=== PATIENT | female | born 1970 | race Caucasian/White ===

== ENCOUNTER 2016-08-07 07:55 | Day surgery (SDC) | payer BC ==
--- NOTE | ~2016-08-07 | OP ---
Record Of Operation [facility] [address] [place]. [address] NAME: AMY CATES : 66 STATUS : REG [facility]#: [id number] AGE: 46 ADM/REG DATE : 08/07/16 MR#: [id number] REPORT SERV DATE: 08/07/16 DICTATED BY: GLYNN STUART III DATE: 08/07/16 REPORT STATUS : Draft TRANSCRIBED BY: MODMirian DATE: 08/07/16 DATE OF PROCEDURE: 08/07/2016 PREOPERATIVE DIAGNOSIS: Stage IV breast cancer, with need for replacement of nonfunctioning right subclavian Port-A-Cath and removal of nonfunctioning Port-A-Cath. POSTOPERATIVE DIAGNOSIS: Stage IV breast cancer, with need for replacement of nonfunctioning right subclavian Port-A-Cath and removal of nonfunctioning Port-A-Cath, possible superior vena caval thrombosis. PROCEDURE: Removal of right subclavian vein Port-A-Cath, attempted placement of a new Port-A Cath with fluoroscopy. SURGEON: Glynn Stuart M.D. ANESTHESIA: General with intubation. COMPLICATIONS: None. ESTIMATED BLOOD LOSS: Less than 5 mL. SPECIMENS: Port-A-Cath for identification. DRAINS: None. LAP AND SPONGE COUNT: Correct x3. BRIEF HISTORY: This 46-year-old female has a history of breast cancer and is currently undergoing chemotherapy. Her current right subclavian vein Port-A-Cath became dysfunctional. Imaging showed that the tubing had completely retracted onto the chest wall and out of the right subclavian vein. Therefore, felt that removal of this Port-A-Cath with placement of a new Port-A-Cath was indicated. This procedure, the risks, benefits, and alternatives, including not limited to the risk for bleeding, infection, pneumothorax, air embolus, pericardial tamponade, failure of the new port to function, infection of the port, or subclavian vein thrombosis requiring removal the port, dislodgement of the tubing requiring extraction, and unforeseen complications including deep venous thrombosis, pulmonary embolus, myocardial infarction, stroke, pneumonia, and , were fully explained the patient prior to surgery. Her questions were answered. She understood the risks and agreed to surgery as planned. DESCRIPTION OF PROCEDURE: After being properly identified and after discussing risks of surgery with her again in the preoperative area, she was taken to the operating room and placed in the supine position on the operating room table. General anesthesia was administered and she was intubated without difficulty. The upper chest and neck areas were prepped and draped sterilely in the usual fashion. It should be noted the patient is extremely obese with a large breast and a large amount of tissue in the upper chest area, Record Of Operation [facility] [address] [place]. [address] NAME: AMY CATES : 66 STATUS : REG [facility] PAT#: [id number] AGE: 46 ADM/REG DATE : 08/07/16 MR#: [id number] REPORT SERV DATE: 08/07/16 DICTATED BY: GLYNN STUART III DATE: 08/07/16 REPORT STATUS : Draft TRANSCRIBED BY: JEREMIE DATE: 08/07/16 supraclavicular areas, and neck making the procedure difficult. After an appropriate "time-out" per [place] standards, an 18-gauge needle was used to identify the left subclavian vein. The vein was identified on the first pass of the needle. A guidewire was passed through the needle and the needle was removed. Fluoroscopy was performed, confirming the tip of the guidewire to be in the correct position in the subclavian vein. However, the guidewire would not pass proximally. A preferentially entered the internal jugular vein. Multiple attempts were made to pass the guidewire into the superior vena cava, but we were not able to do so even with fluoroscopy. For this reason, the guidewire was removed. The vein was accessed again with the needle and the same procedure was performed, but again we could not pass the guidewire proximally into the superior vena cava. For this reason, we elected to attempt placement of a new catheter on the opposite side. A small incision was made directly over the previous right infraclavicular Port-A-Cath. There was a large hematoma which came forth. There was a large hematoma in the subcutaneous tissue. This was evacuated. It was noted that the previous tubing in the previous Port-A- Cath had completely come out of the chest wall and was within the hematoma. The entire tubing and Port-A-Cath housing were completely removed. At this time through this incision, the right subclavian vein was accessed with a needle. A guidewire was passed through the needle. Again, the guidewire passed into the subclavian vein would not pass proximally and superior vena cava. Multiple attempts were made with fluoroscopy, but we were not able to pass the guidewire safely in the superior vena cava. It appeared that there might be a blockage or thrombosis prohibiting of the guidewire from passing. After several attempts it was my judgment that it would not be safe to proceed safely in this fashion. I was concern about the possibility of injury to the subclavian vein or lung. It was my judgment that therefore no further attempts should be made and the best option for the patient would be peripheral Port-A-Cath to be placed per Radiology. The wound was irrigated copiously with saline. Hemostasis was assured. The subcutaneous tissue was closed with running 3-0 Vicryl suture. The skin was closed with a running subcuticular 4-0 Monocryl stitch. Incision was injected with 0.5% Marcaine. Dressings were applied. Anesthesia was reversed. The patient was taken to the recovery room in stable condition. She tolerated the procedure well. Her family was informed of results of surgery. The patient will be discharged in stable and comfortable. Her family was advised that she should keep the wound clean and dry for [address] should not drive for two to three days after surgery or while using narcotics and she should resume her usual medications. She has been asked to return in two weeks for followup or sooner if any fever, chills, wound drainage, or other problems prior to that time. She has been given a prescription for Percocet 7.5 one t.i.d., #12, as needed for pain, which she was advised not to use while driving. My office will contact the patient to arrange for placement of upper extremity Port-A-Cath per invasive Radiology. Record Of Operation [address] [place]. [address] NAME: AMY CATES : 66 STATUS : REG [facility] PAT#: [id number] AGE: 46 ADM/REG DATE : 08/07/16 MR#: [id number] REPORT SERV DATE: 08/07/16 DICTATED BY: GLYNN STUART III DATE: 08/07/16 REPORT STATUS : Draft TRANSCRIBED BY: MODL DATE: 08/07/16 J/JEREMIE Glynn Stuart III, M.D. / [id number] CC: Glynn Stuart III, M.D.
--- NOTE | ~2016-08-07 | PREOPHP ---
PreOp History and Physical [facility] [address] [place]. [address] NAME: AMY CATES : 66 STATUS : REG [facility]#: [id number] AGE: 46 ADM/REG DATE : 08/07/16 MR#: [id number] REPORT SERV DATE: 08/09/16 DICTATED BY: GLYNN HASSAN III DATE: 08/03/16 REPORT STATUS : Draft TRANSCRIBED BY: MODL DATE: 08/03/16 HISTORY OF PRESENT ILLNESS: This 46-year-old female comes to the operating room for removal of a nonfunctioning Port-A-Cath and placement of a new Port-A-Cath. The patient has a history of breast cancer. She has stage IV disease. She is currently receiving chemotherapy. Her current Port-A-Cath has become dislodged in that the tubing has retracted into the upper chest. She comes now for removal of this Port-A-Cath and placement of a new Port-A-Cath. PAST MEDICAL HISTORY: 1. History of stage IV breast cancer with the hepatic and osseous metastasis. 2. Chronic pain. ALLERGIES: NONE. MEDICATIONS: Percocet, Soma, and Xanax. SOCIAL HISTORY: No history of tobacco use. The patient has a history of daily alcohol use. She is single and lives locally. PHYSICAL EXAMINATION: GENERAL: This is a female, in no acute distress. She is alert, oriented x3. HEENT: Unremarkable. She has a right infraclavicular subclavian Port-A-Cath housing in place. NEURO: Cranial nerves 2 through 12 were normal. LUNGS: Clear. CARDIAC: Normal. ASSESSMENT: 1. A 46-year-old male with stage IV breast cancer, with need for replacement of nonfunctioning Port-A-Cath. 2. Chronic pain. PLAN: The patient comes to the operating room for removal of her nonfunctioning Port-A-Cath and placement of a new Port-A-Cath. This procedure, the risks, benefits, and alternatives, including not limited to the risk for bleeding, infection, pneumothorax, air embolus, pericardial tamponade, failure of the port to function, infection of the port, or subclavian vein thrombosis requiring removal of the port, dislodgement of the Port-A-Cath tubing requiring extraction, and unforeseen complications including deep venous thrombosis, pulmonary embolus, myocardial infarction, stroke, pneumonia, and have been explained to the patient prior to surgery. Her questions were answered. She understands the risks and agrees to the surgery as planned. JULIEN/JEREMIE Glynn Pre History and Physical [address] [address] NAME: AMY CATES : 66 STATUS : REG [facility] PAT#: [id number] AGE: 46 ADM/REG DATE : 08/07/16 MR#: [id number] REPORT SERV DATE: 08/09/16 DICTATED BY: GLYNN HASSAN III DATE: 08/03/16 REPORT STATUS : Draft TRANSCRIBED BY: JEREMIE DATE: 08/03/16 Magdiel Hassan III, M.D. / [id number]
[~2016-08-07 07:55] MED LIST: COUMADIN3 MG PO; ENDOCET1 TA1 PO; I-PRIN200 MG PO; LEVAQUIN750 MG PO; Lidocaine Cream TOP; P5 PO; PERCOCET1 TA2 PO; SOMATAB PO; T PO; TRASTUZUMAB IV; X5 PO; XANAX1 MG PO; ZOFRAN4 PO; [UNRECOGNIZED DRUG - OTHER] IV; [UNRECOGNIZED DRUG - REMARK]
[2016-08-07 08:56] LABS: INTERNATIONAL NORMAL RATI 1.2 UNITS (-)
[2016-08-07 09:05] LABS: PROTIME (NOT ORD) 14.7 SEC (12.0-14.5)
[2016-08-19] MEDS ORDERED: ZANAFLEX 4 MG TA4 MG PO (09:19)
[2016-08-19] MEDS ORDERED: COMP10B PO (09:20)
== END 2016-08-07 23:59 | disposition home or self-care (01) ==
LOC: SDC 07:55
PROVIDERS: Surgery
PROC: 0JH63XZ Insertion of Tunneled Vascular Access Device into Chest Subcutaneous Tissue and Fascia, Percutaneous Approach (ICD-10-PCS; 2016-08-07)
PROC: 0JPT3XZ Removal of Tunneled Vascular Access Device from Trunk Subcutaneous Tissue and Fascia, Percutaneous Approach (ICD-10-PCS; principal; 2016-08-07 08:30)
DX: T82.594A Other mechanical complication of infusion catheter, initial encounter (principal); C50.919 Malignant neoplasm of unspecified site of unspecified female breast; Z92.21 Personal history of antineoplastic chemotherapy; G89.29 Other chronic pain; Z79.899 Other long term (current) drug therapy; Z79.891 Long term (current) use of opiate analgesic; Z79.52 Long term (current) use of systemic steroids; Z79.01 Long term (current) use of anticoagulants
CPT/HCPCS: 71010; 77001; 80053; 84703; 85610; 88300; A9270-GY; C1751; C1769; C1892; J0690; J2250; J2270; J3010; Q9967